=== PATIENT | female | born 1985 | race Two or more races ===

== ENCOUNTER 2023-08-29 06:13 | Inpatient (IN) ==
[2023-08-29] MEDS ORDERED: NS 100 ML IV 100 ML ONE ×2 (06:44→12:52)
[2023-08-29] MEDS ORDERED: AMPICILLIN VIAL 2 GRAM ONE (06:44)
[2023-08-29] MEDS ORDERED: NUBAIN INJ 20 MG AMP IVP PRN (07:00)
[2023-08-29] MEDS ORDERED: PITOCIN IVP ONE (07:00)
[2023-08-29] MEDS ORDERED: ZOFRAN INJ 4 MG VIAL IVP PRN (07:00)
[2023-08-29] MEDS ORDERED: REGLAN INJ 10 MG VIAL IVP PRN (07:00)
[2023-08-29] MEDS: LR 1,000 ML IV 1,000 ML IV ONE ×2 (07:15→11:00)
[2023-08-29] MEDS: AMPICILLIN VIAL 2 GRAM 2 G in NS 100 ML IV + SPIKE MINIBAG* 100 ML IV SCH (07:20)
[2023-08-29] MEDS: OXYTOCIN 20 UNIT/1,000 ML-NS 20 UNIT/1,000 ML PLAST..BAG IV PRN (07:30)
[2023-08-29 07:33] LABS: HEMATOCRIT 29.9 % (36.0-47.0); HEMOGLOBIN 9.3 g/dL (12.0-16.0)
[2023-08-29 07:36] LABS: BASOPHILS % (AUTO) 0.4 % (0.2-1.0); EOSINOPHILS # (AUTO) 0.1 x10^3/uL (0.0-0.2); EOSINOPHILS % (AUTO) 1.3 % (0.9-2.9); LYMPHOCYTES # (AUTO) 2.9 X10^3/uL (1.3-2.9); LYMPHOCYTES % (AUTO) 32.3 % (21.0-51.0); MEAN CORPUSCULAR HEMOGLOBIN 22.8 pg (27.0-34.0); MEAN CORPUSCULAR VOLUME 73.5 fL (80.0-100.0); MEAN PLATELET VOLUME 9.8 fL (7.4-11.0); MONOCYTES # (AUTO) 0.5 x10^3/uL (0.3-0.8); MONOCYTES % (AUTO) 5.6 % (0.0-13.0); NEUTROPHILS # (AUTO) 5.5 x10^3/uL (2.2-4.8); NEUTROPHILS % (AUTO) 60.4 % (42.0-75.0); PLATELET COUNT 240 X10^3/uL (150.0-450.0); RED BLOOD COUNT 4.07 X10^6/uL (3.5-5.4); RED CELL DISTRIBUTION WIDTH 18.6 % (11.6-16.5); WHITE BLOOD COUNT 9.1 X10^3/uL (3.6-10.0)
[2023-08-29 07:37] LABS: BLOOD UREA NITROGEN 7 mg/dL (7-18); CALCIUM 8.7 mg/dL (8.5-10.1); CARBON DIOXIDE 21.9 mmol/L (21-32); CHLORIDE 104 mmol/L (98-107); CREATININE 0.77 mg/dL (0.55-1.02); GLUCOSE 80 mg/dL (65-99); POTASSIUM 3.7 mmol/L (3.5-5.1); SODIUM 138 mmol/L (136-145); eGFR NON BLACK RACES > 60 (>60)
[2023-08-29 07:40] LABS: PLATELET MORPHOLOGY COMMENT NORMAL (NORMAL)
[2023-08-29 07:40] LABS: BILIRUBIN,URINE NEGATIVE (NEGATIVE); BLOOD/HEMOGLOBIN,URINE NEGATIVE (NEGATIVE); GLUCOSE, URINE NEGATIVE (NEGATIVE); KETONES,URINE NEGATIVE (NEGATIVE); LEUKOCYTE ESTERASE ,URINE NEGATIVE (NEGATIVE); NITRITES,URINE NEGATIVE (NEGATIVE); PROTEIN,URINE NEGATIVE (NEGATIVE); UROBILINOGEN,URINE NORMAL (NORMAL)
[2023-08-29 07:41] LABS: ANISOCYTOSIS SLIGHT; HYPOCHROMASIA 1+; MICROCYTOSIS SLIGHT; POIKILOCYTOSIS SLIGHT
[2023-08-29 07:51] LABS: APPEARANCE,URINE CLEAR (CLEAR); COLOR,URINE STRAW (YELLOW)
[2023-08-29] MEDS ORDERED: LR 1,000 ML IV 1,000 ML IV ONE (10:55)
[2023-08-29] MEDS: ZOFRAN INJ 4 MG VIAL ONE (10:55)
[2023-08-29] MEDS ORDERED: LIDOCAINE 2%-EPI 1:200,000 ONE (11:34)
[2023-08-29] MEDS: FENTANYL VIAL INJ 100 mcg ONE (11:35)
[2023-08-29] MEDS: NAROPIN EPIDURAL 0.2% 100 ML ONE (11:40)
[2023-08-29] MEDS ORDERED: AMPICILLIN VIAL 1 GRAM ONE (12:52)
[2023-08-29] MEDS: AMPICILLIN VIAL 1 GRAM 1 G in NS 50 ML IV + SPIKE MINIBAG* 50 ML IV SCH (12:55)
[2023-08-29] MEDS ORDERED: BETADINE SOLN ONE (14:15)
[2023-08-29] MEDS: PITOCIN ONE (15:12)
[2023-08-29] MEDS: MOTRIN TAB 800 MG PO PRN (17:33)
[2023-08-29] MEDS ORDERED: PITOCIN ONE (17:49)
[2023-08-29] MEDS ORDERED: NS 1,000 ML IV 1,000 ML ONE (17:50)
[2023-08-29] MEDS: OXYTOCIN 20 UNIT/1,000 ML-NS 20 UNIT/1,000 ML PLAST..BAG IV SCH (17:50)
[2023-08-30 04:49] LABS: HEMATOCRIT 23.8 % (36.0-47.0)
[2023-08-30 05:15] LABS: HEMOGLOBIN 7.3 g/dL (12.0-16.0)
[2023-08-30] MEDS: NS 250 ML IV 250 ML IV ONE (10:05)
[2023-08-30] MEDS: NS 100 ML IV 100 ML with VENOFER 400 MG IV ONE (10:05)
[2023-08-30] MEDS ORDERED: AMPICILLIN VIAL 1 GRAM 1 G in NS 50 ML IV 50 ML IV SCH (12:00)
[2023-08-31] MEDS: LR 1,000 ML IV 1,000 ML IV SCH (07:04)
[2023-08-31 09:15] VITALS: BP 121/69; PULSE 75; RESP 20; TEMP 97.7; O2SAT 97
== END 2023-08-31 11:50 | disposition home or self-care (01) | DRG 807 ==
LOC: LD 06:13 → MED/SURG 16:30
PROVIDERS: ADMIT Obstetrics & Gynecology Obstetrics; ATTEND Obstetrics & Gynecology Obstetrics
DX: O71.82 Other specified trauma to perineum and vulva; O26.893 Other specified pregnancy related conditions, third trimester; Z37.0 Single live birth; Z3A.39 39 weeks gestation of pregnancy; O70.0 First degree perineal laceration during delivery